=== PATIENT | male | born 2005 | race Caucasian/White ===

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

== ENCOUNTER 2023-04-16 08:17 | Emergency (ER) | payer OTHER ==
[~2023-04-16] VITALS: Ht 172.7 cm; Wt 117.9 kg
[~2023-04-16 08:17] MED LIST: IBUP-2213 PO; ONDA-188 PO; ZOLP5TAB1 PO
[2023-04-16 08:28] VITALS: BP 135/71; PULSE 71; RESP 18; TEMP 98.1; O2SAT 99
[2023-04-16 08:37] VITALS: BP 103/75; PULSE 75; RESP 18; TEMP 98.1; O2SAT 99
[2023-04-16] MEDS ORDERED: CEPH-588 PO (09:06)
[2023-04-16] MEDS ORDERED: IBUP-2213 PO (09:06)
== END 2023-04-16 09:23 | disposition home or self-care (01) ==
LOC: MED 08:17
DX: L60.0 Ingrowing nail (principal); Z79.899 Other long term (current) drug therapy
CPT/HCPCS: 99283

== ENCOUNTER 2023-08-27 00:30 | Emergency (ER) | payer OTHER ==
[~2023-08-27] VITALS: Ht 170.2 cm; Wt 120.2 kg
[~2023-08-27 00:30] MED LIST changes: +CEPH-588 PO
[2023-08-27 00:40] VITALS: BP 132/67; PULSE 62; RESP 17; TEMP 208.6; TEMP 98.1; O2SAT 97
== END 2023-08-27 01:05 | disposition home or self-care (01) ==
LOC: MED 00:30
DX: T16.1XXA Foreign body in right ear, initial encounter (principal); Z79.1 Long term (current) use of non-steroidal anti-inflammatories (NSAID); Z79.2 Long term (current) use of antibiotics; Z79.899 Other long term (current) drug therapy; W44.G1XA Audio device entering into or through a natural orifice, initial encounter; Y93.89 Activity, other specified; Y92.098 Other place in other non-institutional residence as the place of occurrence of the external cause; Y99.8 Other external cause status
CPT/HCPCS: 69200; 99284